=== PATIENT | female | born 1970 | race Caucasian/White ===

== ENCOUNTER 2017-03-26 22:41 | Emergency (ER) | payer OTHER ==
[~2017-03-26] VITALS: Ht 167.6 cm; Wt 61.1 kg
[~2017-03-26 22:41] MED LIST: ACETAMINOPHEN650 M6 PO; ALER-CAP25 M1 PO; ALPRAZOLAM2 MG PO; AMBIEN10 M1; AMBIEN10 MG PO; Aspirin E.C. PO; BUSPAR30 MG PO; Benadryl PO; CARISOPRODOL250 MG PO; CLEOCIN150 MG PO; COUMADIN,JANTO7.5 MG PO; Cipro PO; DESYREL 150 MG150 MG PO; EFFEXOR37.5 MG PO; ELAVIL25 MG; FLUCONAZOLE; Humibid LA,Mucinex PO; LEVOTHROID100 MCG PO; LOVENOX40 MG/0.4 SC; Levothroid,Synthroid PO; MOTRIN800 MG; NOHOMEMEDS; OXYCODONE HCL PO; OXYCODONE HCL30 MG PO; RESTASIS 01 DROP/0.4 BOTH EYES; RESTASIS1 EACH; SF 5000 PLUS51 GM; TIROSINT100 MCG PO; TOPAMAX50 MG PO; VENLAFAXINE HCL75 M3 PO; VENLAFAXINE PO; VYVANSE40 MG PO; VYVANSE60 MG PO; VYVANSE70 MG PO; WELLBUTRIN XL300 MG PO; XANAX2 MG PO; ZYVOX600 MG PO; Zyvox PO
[2017-03-27] MEDS ORDERED: SKELAXIN800 MG PO (01:20)
[2017-03-27] MEDS ORDERED: PERCOCET 5/31 TABLET PO (01:20)
[2017-03-27 01:55] VITALS: BP 172/85
== END 2017-03-27 01:56 | disposition home or self-care (01) ==
LOC: EME 22:41 → EXP 22:41
DX: S09.90XA Unspecified injury of head, initial encounter (principal); S16.1XXA Strain of muscle, fascia and tendon at neck level, initial encounter; S39.012A Strain of muscle, fascia and tendon of lower back, initial encounter; W10.9XXA Fall (on) (from) unspecified stairs and steps, initial encounter; E03.9 Hypothyroidism, unspecified; F32.9 Major depressive disorder, single episode, unspecified; F90.9 Attention-deficit hyperactivity disorder, unspecified type; R56.9 Unspecified convulsions; Z88.2 Allergy status to sulfonamides; Z85.43 Personal history of malignant neoplasm of ovary; Z88.6 Allergy status to analgesic agent; Z91.041 Radiographic dye allergy status
CPT/HCPCS: 70450; 72125; 72220; 73030; 99281; 99284

== ENCOUNTER 2017-06-06 16:33 | Emergency (ER) | payer OTHER ==
[~2017-06-06] VITALS: Ht 165.1 cm; Wt 63.5 kg
[~2017-06-06 16:33] MED LIST changes: +PERCOCET 5/31 TABLET PO; +SKELAXIN800 MG PO
[2017-06-06 17:09] LABS: HEMATOCRIT 30.1 % (36.0-46.0); MCH 26.6 PG (29.0-34.0); MCHC 32.2 G/DL (30.0-36.0); MCV 82.5 FL (83-99); MEAN PLAT.VOLUME 9.2 uM^3 (9.5-12.4); PLATELET COUNT 306 K/uL (156-360); RBC DIS.WIDTH-CV 16.3 % (11.8-14.6); RBC DIS.WIDTH-SD 49.4 % (39-53); RED BLOOD COUNT 3.65 M/uL (3.80-5.20); WHITE BLOOD COUNT 3.3 K/uL (4.1-10.2)
[2017-06-06 17:20] LABS: CHLORIDE 111 mEq/L (99-109); SODIUM 137 mEq/L (136-147)
[2017-06-06 17:22] LABS: GLUCOSE 75 mg/dL (70-99)
[2017-06-06 17:23] LABS: ANION GAP 7 MEQ/L (2-14)
[2017-06-06 17:24] LABS: TOTAL BILIRUBIN 0.2 mg/dL (0.0-1.0)
[2017-06-06 17:25] LABS: ALKALINE PHOSPHATASE 70 IU/L (3-129)
[2017-06-06 17:26] LABS: GFR ESTIMATE (CALCULATED) 37 mL/min/
[2017-06-06 17:27] LABS: UREA NITROGEN (BUN) 21 mg/dL (9-23)
[2017-06-06 17:29] LABS: LIPASE 56 U/L (1.0-51.0)
[2017-06-06 17:41] LABS: QUANTITATIVE HCG < 4.0 MIU/ML
[2017-06-06 19:12] LABS: TROP-I INTERPRETATION NEGATIVE; TROPONIN-I < 0.01 ng/mL (0.0-0.30)
[2017-06-06 19:20] LABS: ADD MIUA? YES; BILIRUBIN NEGATIVE; BLOOD NEGATIVE; COLOR YELLOW ((YELLOW)); GLUCOSE (STRIP) NEGATIVE; KETONES NEGATIVE; LEUKOCYTES NEGATIVE; NITRITE NEGATIVE; PROTEIN (STRIP) 30; SPECIFIC GRAVITY 1.016 (1.000-1.030); UROBILINOGEN 0.2 MG/DL (0.2-1.0)
[2017-06-06 19:36] LABS: AMORPHOUS URATES CRYSTALS 3+; BACTERIA RARE /HPF; CASTS NONE SEEN /LPF; CRYSTALS PRESENT; EPITHELIAL CELLS 1+ /HPF; MUCUS NONE SEEN /LPF; RED BLOOD CELLS RARE /HPF (0-5); UCUL ADDED? NO; WHITE BLOOD CELLS RARE /HPF (0-5)
[2017-06-06] MEDS ORDERED: FLOMAX0.4 MG PO (21:13)
[2017-06-06] MEDS ORDERED: NORCO 7.5/321 TABLET PO (21:13)
[2017-06-06] MEDS ORDERED: ZOFRAN ODT4 MG PO (21:13)
[2017-06-06] MEDS ORDERED: MOTRIN800 MG PO (21:13)
[2017-06-06 21:45] LABS: TROP-I INTERPRETATION NEGATIVE; TROPONIN-I < 0.01 ng/mL (0.0-0.30)
[2017-06-06 22:01] VITALS: BP 156/83
== END 2017-06-06 22:04 | disposition home or self-care (01) ==
LOC: EME 16:33
PROVIDERS: Physician Assistant; Physician Assistant Medical
DX: R07.89 Other chest pain (principal); N20.1 Calculus of ureter; I10 Essential (primary) hypertension; R56.9 Unspecified convulsions; E03.9 Hypothyroidism, unspecified
CPT/HCPCS: 74176; 76856; 80053; 81003; 83605; 83690; 84484; 84702; 85027; 93005; 93975; 99281; 99285; J1885; J2405; J7030

== ENCOUNTER 2017-09-25 17:09 | Emergency (ER) | payer OTHER ==
[~2017-09-25] VITALS: Ht 167.6 cm; Wt 65.2 kg
[~2017-09-25 17:09] MED LIST changes: +FLOMAX0.4 MG PO; +MOTRIN800 MG PO; +NORCO 7.5/321 TABLET PO; +ZOFRAN ODT4 MG PO
[2017-09-25 17:48] LABS: CHLORIDE 106 mEq/L (99-109); POTASSIUM 3.9 mEq/L (3.7-5.4); SODIUM 134 mEq/L (136-147)
[2017-09-25 17:49] LABS: GLUCOSE 125 mg/dL (70-99)
[2017-09-25 17:51] LABS: ANION GAP 7 MEQ/L (2-14)
[2017-09-25 17:53] LABS: GFR ESTIMATE (CALCULATED) > 59 mL/min/
[2017-09-25 17:54] LABS: UREA NITROGEN (BUN) 9 mg/dL (9-23)
[2017-09-25 18:02] LABS: TROP-I INTERPRETATION NEGATIVE; TROPONIN-I < 0.01 ng/mL (0.0-0.30)
[2017-09-25 19:05] VITALS: BP 141/92
== END 2017-09-25 19:05 | disposition home or self-care (01) ==
LOC: EME 17:09
PROVIDERS: Emergency Medicine
DX: T43.221A Poisoning by selective serotonin reuptake inhibitors, accidental (unintentional), initial encounter (principal); I10 Essential (primary) hypertension; F32.9 Major depressive disorder, single episode, unspecified; R56.9 Unspecified convulsions; E03.9 Hypothyroidism, unspecified; F41.9 Anxiety disorder, unspecified; F90.9 Attention-deficit hyperactivity disorder, unspecified type; Z85.43 Personal history of malignant neoplasm of ovary; Z88.5 Allergy status to narcotic agent; Z88.8 Allergy status to other drugs, medicaments and biological substances
CPT/HCPCS: 71010; 80048; 84484; 93005; 99281; 99284; J2405